=== PATIENT | female | born 1995 | race Caucasian/White ===

== ENCOUNTER 2022-04-04 21:00 | Inpatient (IN) | payer MEDICAID, SELFPAY ==
[2022-04-05 12:14] VITALS: BMI 31.6
[2022-04-06] MEDS: KETOROLAC 30 MG/ML inj IVP ×2 (02:38→08:42)
[2022-04-06] MEDS: ACETAMINOPHEN 500 MG TABLET 1000 MG PO ×3 (05:52→20:34)
[2022-04-06] MEDS: OXYCODONE 5 MG TABLET PO ×3 (05:58→15:47)
[2022-04-06 07:20] LABS: Hemoglobin* 9.7 gm/dL (12.0-16.0)
[2022-04-06 07:42] VITALS: BP 96/61; PULSE 78; RESP 16; TEMP 36.6; O2SAT 97
--- NOTE | 2022-04-06 08:01 | PM.OBPNCS1 ---
OB - PN: A/P Assessment and Plan (1) Status post delivery: Status: Acute (2) Lactating mother: Status: Acute Plan Anticipate discharge home tomorrow per patient preference Plan day: 1 Plan: routine postop care OB - PN: Subj Subjective Date Seen: 04/06/22 Patient comments: no complaints, pain well controlled, incisional pain and flatus present [place] status: bottle and feeding status: breast and bottle feeding (States she plans to mostly bottle feed. She may breastfeed occasionally. She has breastfed most sessions for the last 24 hours.) OB - PN: Obj Exam Physical Exam: Vital signs: Temp Pulse Resp BP Pulse Ox 97.8 F 78 16 96/61 97 04/06/22 07:42 04/06/22 07:42 04/06/22 07:42 04/06/22 07:42 04/06/22 07:42 Constitutional: Constitutional: no acute distress and cooperative Detailed Eye Exam: Pupils: bilateral: Regular round pupils laterality and bilateral: Reactive pupils laterality Routine Respiratory Exam: Respiratory: Present CTA bilaterally Routine Cardiovascular Exam: Cardiovascular: Present RRR Routine Abdominal Exam: Abdominal: Present normal bowel sounds and soft Fundus: Present firm (u/u) Routine Extremities Exam: Extremities: Present full ROM and normal inspection Detailed Lower Extremity Exam: Hip: bilateral: normal inspection Routine Skin Exam: Skin: Present dry, warm and wounds (Incision. Clean, dry, well approximated) Routine Neurological Exam: Neurological: Present alert and oriented X3 Routine Psychiatric Exam: Psychiatric: Present normal affect and normal thought process OB - PN: Obj Data Labs Labs: Laboratory Results - last 24 hr 04/06/22 06:55 Hgb 9.7 L
[2022-04-06 15:51] VITALS: BP 105/67; PULSE 80; RESP 18; TEMP 36.6; O2SAT 97
[2022-04-06] MEDS: IBUPROFEN 600 MG TABLET PO (18:29)
[2022-04-06] MEDS: DOCUSATE SODIUM 100 MG CAPSULE PO (20:35)
[2022-04-07 00:33] VITALS: BP 103/67; PULSE 80; RESP 16; TEMP 36.7; O2SAT 97
[2022-04-07] MEDS: IBUPROFEN 600 MG TABLET PO ×2 (00:37→06:41)
[2022-04-07] MEDS: OXYCODONE 5 MG TABLET PO ×2 (02:27→08:49)
[2022-04-07] MEDS: ACETAMINOPHEN 500 MG TABLET 1000 MG PO ×2 (02:27→08:52)
--- NOTE | 2022-04-07 08:28 | PM.OBDSCS1 ---
DS: Providers Provider Date of admission: 04/04/22 21:00 Primary care physician: Kenia Sheets MD Admitting Clinician: Brent Dwyer MD Attending Physician on discharge: Brent Dwyer MD Date of Discharge: 04/07/22 DS: Diagnosis Discharge Diagnosis (1) Status post delivery: Status: Acute (2) Lactating mother: Status: Acute Exam Const: Vital Signs, click to edit/add: Vital Signs - 24 hr 04/06/22 15:51 04/07/22 00:33 Temperature 98 F 98.1 F Pulse Rate [Pulse Oximeter] 80 80 Respiratory Rate 18 16 Blood Pressure [Le ft Arm] 105/67 103/67 Pulse Oximetry 97 97 Common normals: no apparent distress, oriented x3 and alert General appearance: cooperative and comfortable Orientation/consciousness: Yes awake HENMT: Common normals: normocephalic, head/scalp atraumatic, hearing grossly normal bilaterally, external nose normal, moist oral mucous membranes, oropharynx normal and dentition normal Head and scalp: normocephalic and atraumatic Nose: external nose normal Eye: General eye: normal appearance of both eyes Neck & C-Spine: Common normals: full ROM Resp: Common normals: normal respiratory effort, no retractions, no use of accessory muscles and clear to auscultation bilaterally Auscultation: clear to auscultation bilaterally Cardio: Common normals: regular rate, regular rhythm, S1 normal heart sound, S2 normal heart sound, no gallops, no clicks and no murmurs Rate: regular rate Rhythm: regular rhythm Heart sounds: S1 normal and S2 normal GI: Common normals: Normal to inspection, nondistended, normoactive bowel sounds present and soft to palpation Palpation: soft Other: +BM Extremity: Common normals: normal to inspection and full ROM General: normal exam except as noted Neuro: Common normals: oriented x3 Sensorium/orientation: awake and alert Skin: Skin images (female): 1. incision. Well approximated. No redness or swelling. Steri strips intact. OB - DS: Summary Peripartum Data complications: none Infant Gender: Male Infant Discharge Plan: Home Status at Discharge Functional status at discharge: independent ambulation Overall status at discharge: patient is progressing back to baseline Time Spent with Patient Time attestation: Total time spent providing and/or coordinating discharge services: Time spent: Less than 30 minutes Quality: Stroke Reason for No Antithrombin at DC: Not indicated Reason for No Anticoagulant at DC: Not indicated Contraindication Not Initiating IV-Tpa: Not indicated Discharge Plan Discharge Disposition: Home, Self-Care Date of Admission: 04/04/22 21:00 Primary Care Provider: Kenia Sheets Condition: Stable Anticipated Discharge Date/Time: 04/07/22 12:00 Discharge Medications: New acetaminophen 500 mg Tablet 1,000 mg PO Q6H PRN (Reason: Pain) Qty: 60 0RF docusate sodium 100 mg Capsule 100 mg PO DAILY PRNQty: 100 0RF Rx Instructions: Take 1-2 caps daily as needed for constipation. ibuprofen 600 mg Tablet 600 mg PO Q6H PRN (Reason: Pain) Qty: 60 0RF oxycodone 5 mg Tablet 5 - 10 mg PO Q4H PRN (Reason: Pain) Qty: 20 0RF oxycodone 5 mg tablet 5 mg PO Q4H PRN (Reason: pain) Qty: 20 0RF Rx Instructions: Take 1-2 tabs every 4 hours as needed for pain. Continued prenat.vits,jose,[id number] Tablet 1 tab PO QDAY 0RF Discharge Orders: Discharge Order (Routine); Ordered 04/07/22 Ordered By: Micaela Jeffery Patient Education: (DC) Activity Level: Activity as Tolerated Activity Detail: No lifting more than 20 lbs for 6 weeks Discharge Diet: Regular Referrals: Kenia Sheets MD [Primary Care Provider] - Forms: [employer] Info Instructions Discharge Comment: Pt understood DC instructions, no further question
[2022-04-07 08:32] VITALS: BP 105/73; PULSE 78; RESP 16; TEMP 36.4; O2SAT 97
--- NOTE | 2022-04-07 12:45 | PC.NURSE ---
Pt getting ready to DC to home. Explained DC instructions, pt and SO understood teaching, left unit ambulatory with DC paperwork, and infant in car seat. No further questions or concerns.
== END 2022-04-07 11:20 | disposition home or self-care (01) | DRG 788 ==
PROVIDERS: Admitting Provider Obstetrics & Gynecology; PCP Obstetrics & Gynecology; Visit Provider Obstetrics & Gynecology
DX: O34.211 Maternal care for low transverse scar from previous cesarean delivery (principal); O66.41 Failed attempted vaginal birth after previous cesarean delivery; O63.1 Prolonged second stage (of labor); O99.02 Anemia complicating childbirth; D64.9 Anemia, unspecified; Z86.16 Personal history of COVID-19; Z3A.37 37 weeks gestation of pregnancy; Z37.0 Single live birth
CPT/HCPCS: 36415; 64488; 76942; 84112; 85018; 85027; 86850; 86900; 86901; 87635; 99140; A9270; J0690; J1885; J2274; J2370; J2405; J2550; J2590; J7030; J7120